=== PATIENT | male | born 1975 | race Caucasian/White ===

== ENCOUNTER → 2017-02-24 | Outpatient (CLI) | payer OTHER ==
[~2017-02-24] MED LIST: ALPRAZOLAM PO; BENTYL10 MG PO; DEXILANT60 MG PO; LORTAB 5/500 TA1 TA1 PO; LORTAB 7.5-3251 EACH PO; MIRALAX17 GM PO; NO MEDICATIONS; NORCO 5/325 TAB1 TAB PO; OMEPRAZOLE40 MG
--- NOTE | ~2017-02-24 | CR170 ---
[facility] A Service of [facility] / [facility] RADIOLOGY TEXT RESULTS PATIENT: KATINA REYNA LOCATION: [facility] : 79 UNIT #: [id number] AGE: [address]: CATHI BLACKMAN SEX: M ORDER DR: [id number] [facility] [address] [place], [place] [address] [id number] O MR#: [id number] Acc #: [id number] NAME: KATINA REYNA : 1975 SEX: M STUDY DATE/TIME: 02/24/2017 17:52 UNIT: [facility] ROOM: STUDY DESCRIPTION: CR Knee 2 Views Rt Attending Physician: Cathi Blackman Aprn Primary Care Physician: Primary Care Physician No MEDICAL IMAGING REPORT This report is preliminary unless electronic signature is present EXAM Right knee 3 views, 02/24/2017 17:52 p.m. HISTORY Pain for 1 week. No known injury. COMPARISON Right knee radiographs 10/27/2011. FINDINGS There is no fracture or visible effusion. Ossification at the patellar tendon insertion on the tibial tubercle is stable. A slightly heterogeneous sclerotic lesion in the proximal metaphysis of the right tibia appears slightly larger than on the 2012 studies above. This does not demonstrate a definite chondroid matrix. 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 If this could be a source of pain, consider MRI of the knee without contrast to include the tibial lesion on a non-emergent basis. IMPRESSION 1. No acute abnormalities. 2. Sclerotic, slightly heterogeneous lesion in the proximal tibia appears slightly larger than on prior studies of 2012. 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 If this could be a source of pain, you could consider non-emergent MRI for further characterization given interval enlargement. Dictated by... Jackeline Moran M.D. [facility] A Service of [facility] / [facility] RADIOLOGY TEXT RESULTS PATIENT: KATINA REYNA LOCATION: [facility] : 79 UNIT #: [id number] AGE: [address]: CATHI BLACKMAN SEX: M ORDER DR: THIS IS AN ELECTRONICALLY VERIFIED REPORT Jackeline Moran M.D. at 02/26/2017 11:29 AM ADRIANA/gustavo TD: 02/25/2017 17:53 JOB #: [id number] MEDICAL IMAGING REPORT Page 1 of 1 COPY
--- NOTE | ~2017-02-24 | CR184 ---
[facility] A Service of [facility] RADIOLOGY TEXT RESULTS PATIENT: KATINA REYNA LOCATION: [facility] : 77 UNIT #: [id number] AGE: [address]: CATHI BLACKMAN SEX: M ORDER DR: [id number] [facility] [address] [place], [place] [address] [id number] O MR#: [id number] Acc #: [id number] NAME: KATINA REYNA : 1975 SEX: M STUDY DATE/TIME: 02/24/2017 17:49 UNIT: [facility] ROOM: STUDY DESCRIPTION: CR Lumbar Spine Min 4 Views Attending Physician: Cathi Blackman Aprn Primary Care Physician: No Primary Care Physician MEDICAL IMAGING REPORT This report is preliminary unless electronic signature is present EXAM Lumbar spine, 7 views. COMPARISON Lumbar spine radiographs dated January 22, 2014 and June 01, 2013. INDICATION 41-year-old male with low back pain for one week. FINDINGS Pelvic phleboliths are again noted on the left. The lumbar spine is anatomically aligned. No evidence of pars defect or acute fracture. There is stable mild anterior height loss at the T12 vertebral body, perhaps reflecting a remote compression fracture. Lumbar disc heights are maintained. The lumbar spine is stable in flexion and extension. There is minimal early calcification of the abdominal aorta extending into at least one of the iliac arteries. FINDINGS 1. No acute fracture, subluxation, or significant degenerative change of the lumbar spine. 2. Stable mild anterior height loss of the T12 vertebral body, perhaps reflecting remote compression fracture. 3. No evidence of lumbar spinal instability or pars defect. 4. Premature arterial calcification of the abdomen and pelvis. Dictated by... Katina Raymond M.D. THIS IS AN ELECTRONICALLY VERIFIED REPORT Katina aRymond M.D. at 03/02/2017 4:22 PM [facility] A Service of [facility] RADIOLOGY TEXT RESULTS PATIENT: KATINA REYNA LOCATION: [facility] : 79 UNIT #: [id number] AGE: [address]: CATHI BLACKMAN SEX: M ORDER DR: ALBERT/carline TD: 02/26/2017 01:58 JOB #: [id number] MEDICAL IMAGING REPORT Page 1 of 1 COPY
== END | disposition home or self-care (01) ==
LOC: CRAD 16:52
DX: M25.561 Pain in right knee (principal); M54.5 Low back pain; M25.861 Other specified joint disorders, right knee; I70.0 Atherosclerosis of aorta
CPT/HCPCS: 72110; 73560